=== PATIENT | male | born 1945 | race African-American/Black ===

== ENCOUNTER 2018-12-20 04:34 | Inpatient (IN) ==
[2018-12-20] MEDS ORDERED: NITROGLYCERIN TOP ONE (04:50)
--- NOTE | 2018-12-20 04:55 | PROVIDER DOCUMENTATION ---
HPI-General Adult - General Stated Complaint: cp Time Seen by Provider: 12/20/18 04:40 Source: patient, EMS Allergies/Adverse Reactions: Patient Allergies Allergy/AdvReac Type Severity Reaction Status Date / Time No Known Allergies Allergy Verified 12/20/18 05:04 - History of Present Illness -Gen Adult Nature of Presenting Problems: 73 y/o M presents to the ED complaining of chest pain. States he awoke with this pain at about 1am and it has persisted since. States with this he was dyspnic and diaphoretic but did not get nauseated. States chest pain was decreased from a 03/24 to 110 after EMS gave him ASA and NTG. Pain substernal and non-radiating pressure like pain. Has Hx of CHF, HTN, HPL, and prior SD Review of Systems - Adult - REVIEW OF SYSTEMS - ADULT Constitutional: reports: no symptoms reported Eyes: reports: no symptoms reported Ears, Nose, Mouth & Throat: reports: no symptoms reported Cardiovascular: reports: chest pain Respiratory: reports: shortness of breath. denies: cough Gastrointestinal: reports: no symptoms reported Genitourinary: reports: no symptoms reported Musculoskeletal: reports: no symptoms reported Integumentary: reports: no symptoms reported Neurological: reports: no symptoms reported Psychiatric: reports: no symptoms reported Endocrine: reports: no symptoms reported Hematologic/Lymphatic: reports: no symptoms reported Allergic/Immunologic: reports: no symptoms reported All Other Systems: Reviewed and Negative Past History - Adult - PAST MEDICAL HISTORY-ADULT Review of Records: reports: Old Records Reviewed, Nursing Assessment Review, Medications Reviewed, Social history reviewed & non-contributory. Physical Exam-General - PHYSICAL EXAM-ADULT Initial Vital Signs Reviewed: Yes - CONSTITUTIONAL General Appearance: appears well, alert, no apparent distress - EYES Eyes: PERRL/EOMI - HEAD, EARS, NOSE, MOUTH & THROAT HENMT: normocephalic/atraumatic, moist mucous membranes, normal ENT inspection - NECK Neck: non-tender, full range of motion, supple - RESPIRATORY Respiratory: chest non-tender, lungs clear, normal breath sounds - CARDIOVASCULAR Cardiovascular: normal peripheral pulses, regular rate, rhythm, no JVD, other (1+ BL pitting edema) - GASTROINTESTINAL (ABDOMEN) Abdominal Exam: non tender, soft - MUSCULOSKELETAL Back Exam: normal inspection, no CVA tenderness, no vertebral tenderness Extremity: normal range of motion, non-tender - SKIN Integumentary: normal color, normal turgor, warm/dry - NEUROLOGIC Neurologic: grossly normal, no motor/sensory deficits - PSYCHIATRIC Psych/Mental Status: normal mood/affect, normal thought content, normal thought process, oriented x 3 Progress - PLAN OF CARE/RESULTS Progress/Plan/Lab Results: Orders Category Date Time Status IV Insertion ORDERED Care 12/20/18 04:50 Ordered CHEST-1 VIEW [RAD] Stat Exams 12/20/18 04:50 Ordered BASIC METABOLIC PANEL [CHEM] Stat Lab 12/20/18 04:50 Uncollected CBC WITH DIFF [HEME] Stat Lab 12/20/18 04:50 Uncollected PRO B-NATRIURETIC PEPTIDE Stat Lab 12/20/18 04:50 Uncollected TROPONIN T Stat Lab 12/20/18 04:50 Uncollected Nitroglycerin Med 12/20/18 04:50 Once 1 inch TOP NOW ONE EKG [EKG] Stat Ther 12/20/18 04:26 Ordered chest pain will further evaluate for causes including but not limited to ACS, arrythmia, ptx, pna, chf, pe Result Diagrams: 12/20/18 05:20 12/20/18 05:20 - REASSESSMENT Reassessment #1 Status: improving (chest pain resolved. ED work up unremarkable but presentation concerning for ACS will admit for furhter evaluation and treatment. Discussed case with Dr. Bright, Hospitalist, who will see and admit pt.) - EKG 1 Time of EKG reading by physician:: 04:38 EKG Read and Signed by:: Stephany Lewis EKG Interpretation (*Must complete 3 of following elements*): Abnormal (Sinus Rhythm, rate 58, inverted t-waves inferiorly, normal axis and intervals. T-waves inversions new as compared to 04/23/18) - XRAY 1 XRAY Study: Chest Impression: Normal Departure - Departure Date of Disposition Decision: 12/20/18 Time of Disposition Decision: 06:29 DIAGNOSIS: Chest pain Qualifiers: Chest pain type: unspecified Qualified Code(s): R07.9 - Chest pain, unspecified Disposition: ADMITTED INPATIENT 09 Certified Medical Emergency: Emergent Condition: Good Referrals and Follow-Ups: Bharathi Medina MD [Primary Care Provider] - - Critical Care Note This patient required my direct & personal management of CC.: No Attestation - Physician/ PHOEBE Attestation Patient care was provided by Advanced Practice Provider:: No The physician spent face to face time with patient:: Yes Advanced Practice Provider documentation review:: Supervising physician onsite and consulted in the evaluation and care of this patient. The physician did have a face to face encounter with the patient.
[2018-12-20 05:31] LABS: BASO# 0.03 X1000 (0.0-0.2); BASO% 0.4 % (0.0-0.8); EOS# 0.31 X1000 (0.0-0.7); EOS% 4.4 % (0.0-10.0); HEMATOCRIT 38.8 % (42.0-52.0); HEMOGLOBIN 13.4 g/dL (14.0-18.0); LYMPH# 2.71 X1000 (1.2-3.4); LYMPH% 38.8 % (20.5-51.1); MCH 32.4 PG (27-31); MCHC 34.5 g/dL (33-37); MCV 93.7 FL (81-99); MONO# 0.65 X1000 (0.11-0.59); MONO% 9.3 % (1.7-9.3); MPV 11.1 FL (7.4-10.4); NEUT# 3.29 X1000 (1.4-6.5); NEUT% 47.1 % (42.2-75.2); PLT 171 X1000 (130-400); RBC 4.14 XMIL (4.7-6.1); RDW 12.1 % (11.5-14.5); WBC 6.99 X1000 (4.8-10.8)
[2018-12-20 06:08] LABS: AGAP 13; BUN 13 mg/dL (8-22); CHLORIDE 99 mmol/L (98-107); COSMO 282; CREATININE 1.3 mg/dL (0.7-1.2); ESTIMATED GFR > 60; GLUCOSE 171 mg/dL (70-104); POTASSIUM 3.5 mmol/L (3.5-5.1); SODIUM 139 mmol/L (136-145); TCO2 27 mmol/L (25-35)
[2018-12-20] MEDS ORDERED: KLOR-CON PO ONE (06:37)
[2018-12-20] MEDS ORDERED: TYLENOL PO PRN (06:38)
[2018-12-20] MEDS ORDERED: ZOFRAN IV PRN (06:38)
[2018-12-20] MEDS ORDERED: NITROGLYCERIN SL PRN (06:38)
[2018-12-20] MEDS ORDERED: LOVENOX SUBQ SCH (06:45)
[2018-12-20 07:14] LABS: HEMOGLOBIN A1C 5.4 % (4.8-6.0)
--- NOTE | 2018-12-20 07:54 | Diag Imaging Result Doc PS360 ---
EXAM: CHEST-1 VIEW INDICATION: chest pain TECHNIQUE: One view COMPARISON: 04/23/2018 FINDINGS: There is stable minimal elevation of the left hemidiaphragm. The lungs are grossly clear. There is no discrete pleural fluid collection or pneumothorax. The cardiomediastinal silhouette and central vasculature are grossly unremarkable. IMPRESSION: No evidence of acute pathology by plain radiograph. Electronically signed by Martínez Rg 12/20/2018 7:52 AM
[2018-12-20] MEDS: ASPIRIN PO SCH (09:09)
[2018-12-20] MEDS: PRILOSEC PO SCH (09:09)
[2018-12-20] MEDS ORDERED: COREG PO SCH ×2 (09:47→21:00)
[2018-12-20] MEDS ORDERED: NORVASC PO SCH (09:47)
--- NOTE | 2018-12-20 11:29 | HISTORY AND PHYSICAL ---
PRIMARY CARE PHYSICIAN: Dr. Medina. CHIEF COMPLAINT: Chest pain. HISTORY OF PRESENT ILLNESS: This is a 73-year-old male, lying on the ER stretcher in no acute distress. He complains that he woke up around 1:15 this morning with chest tightness that he described that went across his entire chest at the top part and radiated down his right arm. Stated this pain was a pressure-like pain. The patient states that he ate 4 tacos last p.m. about 8 p.m. and fell asleep in his recliner at about 10:30 last night after watching a ball game. The patient states that when he woke up with this chest tightness, he took a teaspoon of baking soda because he thought it was more of an epigastric pain, but this did not help. The patient denies any nausea or vomiting during this episode. States that he did have a little shortness of breath with this pain where it was hard for him to take a deep breath. He states the pain lasted about 3 hours and then subsided after he came into the ER. The patient states that he is still sore to his right shoulder area. The patient denies any chest pain at this present time, just soreness to the right shoulder area. The patient denies any nausea or vomiting at this present time. Heart rate on monitor is sinus bradycardia in the 50s. No irregularities noted. The patient does have some edema noted to the bilateral lower extremities, about a +1. The patient states he has been having this edema and that his heart doctor, Dr. Irizarry, is aware and put him on some hydrochlorothiazide for the edema. Patient states that he does not think the edema came from his heart. He states that it started after he started taking amlodipine. There were no other significant symptoms noted. PAST MEDICAL HISTORY: 1. Peripheral artery disease. 2. Hypertension. 3. Hyperlipidemia. 4. The patient is hard of hearing and wears hearing aids. PAST SURGICAL HISTORY: Includes angioplasty 25 to 30 years ago in [place] and cataract surgery. FAMILY HISTORY: Mother had hypertension and from a stroke. Dad is and the patient was estranged from his father, does not know much about him. SOCIAL HISTORY: Patient moved from [place] to [place] several years back. He is retired and lives with his girlfriend and her son who is 20 years old. The patient smokes half a pack of cigarettes a day. He denies any alcohol or drug abuse. ALLERGIES: No known drug allergies. MEDICATIONS: 1. Hydrochlorothiazide 12.5 mg p.o. daily. 2. Amlodipine 5 mg p.o. daily. 3. Coreg 25 mg daily. 4. Pravastatin sodium 20 mg p.o. daily. LABORATORY AND DIAGNOSTIC DATA: White blood cell count 6.99, hemoglobin 13.4, hematocrit 38.8, platelet count 171,000. Sodium 139, potassium 3.5, CO2 27, BUN 13, creatinine 1.3, glucose 171. Hemoglobin A1c 5.4, calcium 9.0. Magnesium 1.6. Troponin 0.051. ProBNP 24. Cholesterol 144, LDL 73, VLDL cholesterol 27, HDL 55. Chest x-ray done on 12/20/2018 shows no evidence of acute pathology. EKG done in the ER showed sinus rhythm, rate of 58 with inverted T- waves and normal axis, T-waves inversions are new compared to 04/23/2018. REVIEW OF SYSTEMS: Fourteen point review of systems complete, all negative except for what is stated above in the HPI. PHYSICAL EXAMINATION: VITAL SIGNS: Temperature 97.7 degrees, pulse rate 59, respiratory rate 12, blood pressure 146/90, O2 saturation 97% on room air. GENERAL: This is a 73-year-old male, lying on the ER stretcher in no acute distress. The patient is well-nourished, able to answer all questions appropriately. HEENT: Head is atraumatic and normocephalic. Pupils are equal, round, reactive to light. Mucous membranes are dry. NECK: Supple. No lymphadenopathy. Trachea is midline. No JVD. CARDIOVASCULAR: S1, S2 noted. No murmur, gallop, or rub. Regular rate and rhythm. RESPIRATORY: Lung sounds are clear. Equal chest expansion. Respirations are nonlabored and there is no accessory muscle usage. GASTROINTESTINAL: Abdomen is soft, nontender, nondistended. Bowel sounds are present x4. GENITOURINARY: The patient is voiding clear yellow urine. Denies any dysuria. NEUROLOGIC: The patient is awake, alert, oriented, able to follow all commands and questions appropriately. Cranial nerves intact. MUSCULOSKELETAL: Full distal strength noted. No abnormalities. EXTREMITIES: Bilateral lower leg edema +1. No clubbing or cyanosis is noted. DP and PT pulses are +2 and palpable. SKIN: Warm, dry, and intact. No rashes, bruises noted. ASSESSMENT: 1. Acute coronary syndrome. 2. Hypertension. 3. Hyperlipidemia. 4. Peripheral artery disease. PLAN: We will admit the patient to the medical floor. Restart all home medications. Repeat troponin level and EKG. Provide pain medicine and nausea medication as needed. Start the patient on some IV fluid for 24 hours as patient may be a little dehydrated. Dictated by GLORIA Moreno for Franck Moreno MD cc: MD Bharathi Crespo MD Agree with above. the following is my own face to face assessment. Patient with complaints of chest pain. initial troponin negative. on exam heart RRR, lungs CTAB. will trend troponins and monitor. MTDD
[2018-12-20 13:32] LABS: CK INDEX 7.7 (0.0-2.5); CK-MB 24.8 ng/mL (0.0-5.0)
[2018-12-20] MEDS: NS 1,000 ML IV SCH ×2 (15:42→15:43)
--- NOTE | 2018-12-20 18:21 | CARDIOLOGY CONSULTATION ---
DATE: 12/20/2018 CONSULTATION REQUESTED BY: Hospitalist Service. PRIMARY PHYSICIAN: Dr. Medina. REASON FOR CONSULTATION: Chest pain. HISTORY: Mr. Lynn is a 73-year-old black gentleman who presented to the emergency room early this morning. Apparently, he had eaten some greasy stuff before watching a basketball game that ended up after midnight. At about 1:15 in the morning, he was awakened by pain across the chest. It lasted for 2 to 3 hours and eventually got better. He has received thus far only 1 set of troponins at 5:20 in the morning. It is 0.051 ng/mL. The patient has no previous troponins in the system. His LDL cholesterol is 73, total cholesterol 144, triglycerides 135, HDL is 55. ProBNP is normal at 20 pg/mL. His creatinine is 1.3 mg%. The patient felt a little short of breath during the episode of chest pain. That has subsided. He is feeling back to his normal self. He has noted some swelling lately. PAST HISTORY: Positive for previous diagnosis of hypertension and hyperlipidemia. He also has history of acid reflux. In 2016, he underwent testing for chest pain. In December 2016, his stress test showed a moderate size fixed defect in the left ventricular apex associated with chest wall attenuation. He has no significant surgical history in the past. SOCIAL HISTORY: He lives with a girlfriend. His 1st . He has a total of 6 children, 5 boys and 1 girl. They are scattered all over the country, 1 in [place], 1 in [place], 1 in [place], 1 in [place], [place]. 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 He has been in [place] for the past 5 years or so. FAMILY HISTORY: Noncontributory. MEDICATIONS: Home medications at this time include amlodipine 5 mg daily, carvedilol 25 daily, hydrochlorothiazide 12.5 daily, pravastatin 20 mg daily. REVIEW OF SYSTEMS: Lately, he has noted puffiness of the legs. That coincides with the switching of his medications from Diovan to amlodipine. No other positives in his multiple systems. PHYSICAL EXAMINATION: Vital Signs: Today blood pressure is 157/82, pulse 51, respirations 13, temperature is 97.7 degrees. General: He is awake, alert, in no distress. HEENT: Unremarkable. Chest: Sounds clear to auscultation and percussion. Heart: Sounds are regular, rhythmic. No gallop or murmur. Abdomen: Nontender. No masses. No hepatomegaly. Extremities: Trace edema in both ankles. Neurologic: Nonfocal. Moves 4 extremities. DIAGNOSTIC STUDIES: Twelve-lead EKG shows sinus bradycardia, rate 58 beats per minute at 4:37 in the morning. There is a nonspecific T-wave in the inferior lateral leads. Repeat EKG at 11:53 in the morning shows similar abnormalities. IMPRESSION: 1. The patient presented with chest pain that may or may not represent coronary heart disease. 2. History of hypertension. 3. Tobacco user. 4. Peripheral edema, probably secondary to amlodipine. 5. His proBNP is normal. 6. Abnormal EKG. RECOMMENDATIONS: We will do serial cardiac enzymes on him, and we will arrange for a stress test and an echocardiogram. Further advice will be forthcoming. Thank you for the opportunity to participate in his evaluation. If the cardiac workup is negative, please proceed with an abdominal ultrasound to make sure that he does not have gallstones. cc: Michel Bailey MD
[2018-12-20] MEDS: LOVENOX SUBQ SCH (18:47)
[2018-12-20] MEDS: COREG PO SCH (21:42)
[2018-12-20] MEDS: PRAVACHOL PO SCH (21:42)
[2018-12-21] MEDS: NS 1,000 ML IV SCH ×3 (05:58→21:46)
[2018-12-21] MEDS: PRILOSEC PO SCH (06:06)
[2018-12-21] MEDS: LOVENOX SUBQ SCH ×2 (06:06→19:44)
[2018-12-21 08:01] LABS: AGAP 10; BUN 9 mg/dL (8-22); CALCIUM 8.9 mg/dL (8.8-10.2); CHLORIDE 101 mmol/L (98-107); COSMO 276; CREATININE 1.2 mg/dL (0.7-1.2); ESTIMATED GFR > 60; GLUCOSE 131 mg/dL (70-104); POTASSIUM 3.7 mmol/L (3.5-5.1); SODIUM 138 mmol/L (136-145); TCO2 27 mmol/L (25-35)
[2018-12-21] MEDS: ASPIRIN PO SCH (09:06)
[2018-12-21] MEDS: COREG PO SCH ×2 (09:06→21:46)
--- NOTE | 2018-12-21 10:57 | Extremity Venous Study ---
PROCEDURE NAME: Venous U/S Bilateral Legs - 12/20/2018 PROCEDURE PERFORMED: Bilateral lower extremity venous duplex and color flow imaging study using the [employer] Vivid E9 ultrasound system with a 9 L-D transducer. REFERRING PHYSICIAN: Dr. Moreno. LOCATION: Room #325. A 73-year-old male. [place] INTERNSHIP: [employer] Gates RVT. INDICATIONS: Bilateral lower extremity pain and edema suggestive of deep venous thrombosis. FINDINGS: The right common femoral vein and its branches, deep and superficial femoral veins were satisfactorily imaged. They had flow through them and were compressible. Right popliteal vein and the deep veins below the right knee were all compressible and had flow through them. The superficial veins of the right lower extremity were compressible throughout their length. The left common femoral vein and its branches, deep and superficial femoral veins were also satisfactorily imaged. They had flow through them and were compressible. Left popliteal vein and the deep veins below the left knee were all compressible and had flow through them. The superficial veins of the left lower extremity were compressible throughout their length. OVERALL INTERPRETATION: There was evidence of venous insufficiency involving the right popliteal vein and the left common femoral vein and the left great saphenous vein. cc: Saumya Burr MD
--- NOTE | 2018-12-21 11:27 | CARDIOLOGY PROGRESS NOTE ---
DATE: 12/21/2018 CHIEF COMPLAINT: Chest pain. SUBJECTIVE: Mr. Lynn is feeling better. He has not had any further chest pains. His telemetry shows no arrhythmia. He is up and about, ambulating. He is about to take a shower. OBJECTIVE: Blood pressure is 137/94, temperature 97.9, pulse 60, respirations 20. He is awake, alert and oriented. No distress. HEENT: Unremarkable. Chest: Clear to auscultation and percussion. Heart sounds regular and rhythmic. No gallop or murmur. Abdomen: Nontender. Soft. No masses. No hepatomegaly. Extremities: Good pulses. No peripheral edema. Neurologic: Follows commands. Moves all 4 extremities. DIAGNOSTIC DATA: A 12-lead EKG today shows sinus rhythm with a nonspecific T wave change in inferolateral leads. This appears to be a little more pronounced than yesterday. Troponin levels actually rule in, within range for myocardial infarction. The highest was 0.742, and then it has come down to 0.299. IMPRESSION: 1. The patient has suffered a [id number]-[id number] myocardial infarction. 2. Tobacco user. 3. History of hypertension. 4. Lower extremity edema, unrelated to heart failure. This appears to be a side effect of amlodipine. 5. Hyperlipidemia. RECOMMENDATIONS: At this time, we will suggest to continue Lovenox at 1 mg/kg plus aspirin plus beta brooke plus low dose amlodipine. The patient will be referred to [facility] tomorrow morning for coronary arteriography, possibly coronary intervention. I explained to the patient the benefits, risks and complications of that procedure. He is in agreement. We will contact [place] in the morning. cc: Michel Bailey MD
[2018-12-21 12:04] LABS: CK INDEX 3.6 (0.0-2.5); CK-MB 8.8 ng/mL (0.0-5.0)
--- NOTE | 2018-12-21 13:36 | PROGRESS NOTE ---
DATE: 12/21/2018 INTERVAL HISTORY: Patient with no further chest pain. No events on telemetry. Did have elevated troponin yesterday afternoon, but subsequent troponins have trended back down. No new complaints and no acute events overnight. REVIEW OF SYSTEMS: A 12 point review of systems negative except as per Interval History. LABORATORIES: Basic metabolic panel unremarkable aside from creatinine 1.2, glucose 131. Initial troponin 0.51, repeat 0.7, subsequent 0.29. VITALS: Temperature maximum 98.9 degrees, pulse 60, respirations 20, blood pressure 137/94, O2 saturation 100% on room air. PHYSICAL EXAMINATION: General: No acute distress. Vitals: As above. HEENT: Normocephalic, atraumatic. Moist mucous membranes. Neck: No cervical adenopathy. Cardiovascular: Regular rate and rhythm. No murmurs noted. Pulmonary: Clear to auscultation bilaterally. No wheezing, rales, or rhonchi. Abdomen: Soft, nontender, nondistended. Bowel sounds positive. Extremities: Peripheral pulses intact. Trace to 1+ bilateral lower extremity edema. No clubbing or cyanosis. Neurologic: Cranial nerves grossly intact. Mild global weakness, but no focal deficits identified. Psychiatric: Normal mood and affect. Awake, alert, and oriented x3. Skin: No new rashes or lesions identified. Stable old bruises. ASSESSMENT AND PLAN: 1. Icm-UH-[id number] myocardial infarction. The patient presented with chest pain. Initial troponin negative, but trended up to 0.7. Subsequent troponin is trending back down. No further chest pain at this time. Cardiology following and planning on transferring patient to [place] for further evaluation with likely heart catheterization. We will continue aspirin, statin, and nitroglycerin as needed. 2. Hypertension. Reasonable control on current regimen. Beta brooke held this morning because of bradycardia, although patient was asymptomatic. Will discontinue clonidine and attempt to continue his beta brooke if he tolerates it. 3. Hyperlipidemia. Continue statin. 4. Lower extremity edema, fairly mild. Slight asymmetry, so ultrasound was performed, which was negative for DVT. Echocardiogram pending. 5. Elevated creatinine. Patient with baseline creatinine 1.1, slightly elevated at 1.3 on admission, but may be worsening of chronic kidney disease. Minimally improved to 1.2 now. Continue gentle hydration and monitor.
[2018-12-21] MEDS: PRAVACHOL PO SCH (21:46)
[2018-12-22] MEDS: PRILOSEC PO SCH (06:14)
[2018-12-22] MEDS: LOVENOX SUBQ SCH (06:17)
[2018-12-22 08:18] VITALS: BP 181/89
--- NOTE | 2018-12-22 09:27 | EKG Report ---
Test Performed on : 12/20/2018 11:53:12 AM Test Reason : chest pain Blood Pressure : / mmHG Vent. Rate : 050 BPM Atrial Rate : 050 BPM P-R Int : 122 ms QRS Dur : 088 ms QT Int : 434 ms P-R-T Axes : 027 013 -36 degrees QTc Int : 395 ms Sinus bradycardia. T wave abnormality, consider inferior ischemia Abnormal ECG When compared with ECG of 20-DEC-2018 04:37, (Unconfirmed) No significant change was found Confirmed by Jeremy JORDAN, Stephen Lee ([id number]) on 12/23/2018 9:59:55 AM
--- NOTE | 2018-12-22 09:38 | EKG Report ---
Test Performed on : 12/21/2018 08:01:00 AM Test Reason : chest pain Blood Pressure : / mmHG Vent. Rate : 052 BPM Atrial Rate : 052 BPM P-R Int : 166 ms QRS Dur : 092 ms QT Int : 450 ms P-R-T Axes : 030 -08 -43 degrees QTc Int : 418 ms Sinus bradycardia. T wave abnormality, consider inferior ischemia Abnormal ECG When compared with ECG of 20-DEC-2018 11:53, (Unconfirmed) No significant change was found Confirmed by Jeremy JORDAN, Stephen Lee ([id number]) on 12/23/2018 10:00:15 AM
--- NOTE | 2018-12-22 10:14 | EKG Report ---
Test Performed on : 12/20/2018 04:37:53 AM Test Reason : ED. NO EKG ORDER FOR MUSE Blood Pressure : / mmHG Vent. Rate : 058 BPM Atrial Rate : 058 BPM P-R Int : 176 ms QRS Dur : 092 ms QT Int : 430 ms P-R-T Axes : 047 -05 -25 degrees QTc Int : 422 ms Sinus bradycardia. Nonspecific T wave abnormality Abnormal ECG When compared with ECG of 23-APR-2018 14:10, Nonspecific T wave abnormality now evident in Lateral leads Unconfirmed Result
--- NOTE | 2018-12-22 10:20 | ECHO REPORT ---
ORDER DATE: 12/21/2018 INTERPRETING PHYSICIAN: Dr. Bailey REQUESTING PHYSICIAN: CLINICAL INDICATIONS: This is a 73-year-old male with iyx-YE-agbydhcis myocardial infarction, chest pain. M-MODE MEASUREMENTS: Right ventricle: cm. Left ventricle end diastole: 5.5 cm. Left ventricle end systole: 3.9 cm. Posterior wall: 1.1 cm. Interventricular septum: 1.1 cm. Left atrium: 4.0 cm. Aortic root: 3.4 cm. SUMMARY OF 2-DIMENSIONAL IMAGIN. Left ventricular function is preserved. Ejection fraction is estimated at 60% to 65%. There is question of hypokinesis of the most basal portion of the posterior wall. This is very limited. 2. The left atrium appears to be significantly enlarged. 3. Right atrium is mildly enlarged. 4. Right ventricle appears to be normal. 5. Inferior vena cava is not dilated. 6. Tricuspid valve looks normal. Color flow mapping indicates mild degree of regurgitation. 7. Pulmonary pressure is estimated at 32 mmHg. 8. Pulmonic valve looks normal. Color flow mapping indicates mild degree of regurgitation. 9. Aortic valve shows sclerosis, especially of the noncoronary cusp. Color flow mapping is unremarkable. 10.Mitral valve shows no significant regurgitation. 11.Pulse wave Doppler of mitral inflow shows "normal" E/A ratio. 12.Tissue Doppler of septal and lateral mitral annulus averages 9 cm. 13.There is no diastolic dysfunction. 14.No pericardial effusion, mass or thrombus. CONCLUSIONS: In summary, this study shows: 1. Normal left ventricular systolic function. 2. Question of hypokinesis of the most basal posterior wall. 3. No diastolic dysfunction. 4. Pulmonary pressure is 32 mmHg. 5. Sclerosis of the aortic valve without stenosis. Clinical correlation is recommended. cc: Michel Bailey MD
--- NOTE | 2018-12-27 05:27 | DISCHARGE SUMMARY ---
ADMISSION DATE: 12/20/2018 DISCHARGE DATE: 12/22/2018 DISCHARGE DIAGNOSES: 1. Chest pain. 2. Non-ST segment elevation myocardial infarction. 3. Hypertension. 4. Hyperlipidemia. 5. Coronary artery disease. 6. Chronic kidney disease stage 2. HOSPITAL COURSE: Patient with history of coronary artery disease, hypertension, and hyperlipidemia, who presented with sudden onset of chest pain across the entire chest region to the right arm, pressure-like, it woke him from sleep at 1:15 in the morning. He also reported new mildly worsening lower extremity edema. Initial evaluation was unremarkable with essentially normal labs, but subsequent troponin trended up to 0.72 before trending back down. He was evaluated by Cardiology, who recommended transfer to [place] for possible heart catheterization and/or evaluation by Cardiothoracic Surgery. His chest pain did resolve with nitroglycerin and morphine. He is otherwise stable. His creatinine was mildly elevated on admission at 1.3, it came down to 1.2 with fluids. Last known creatinine at our facility was 1.1, but that was a year or so prior, so may have had mild worsening of his underlying mild kidney disease. DISCHARGE VITAL SIGNS: Temperature 98.2 degrees, pulse 51, respirations 16, blood pressure 181/89, O2 saturation 99% on room air. DISCHARGE MEDICATIONS: 1. Coreg 25 mg p.o. b.i.d. 2. Hydrochlorothiazide 12.5 mg p.o. daily, currently being held. 3. Norvasc 5 mg p.o. daily. 4. Pravachol 20 mg p.o. daily. 5. Nitroglycerin and morphine as needed for chest pain. DISCHARGE DIET: NPO until seen by Cardiology. FOLLOWUP AND PLAN: Patient transferring to [facility] for further cardiac evaluation of his NSTEMI. TIME SPENT: Greater than 30 minutes spent arranging discharge and counseling patient.
== END 2018-12-22 11:43 | disposition short-term general hospital (02) | DRG 281 ==
LOC: SUPCPDRO → ED 04:34 → 3N 08:26 → SUATTDRO 08:26
PROVIDERS: ATTEND Internal Medicine
CPT/HCPCS: 71010; 71045; 80048; 80061; 82550; 82553; 83036; 83721; 83735; 83880; 84484; 85025; 93005; 93010; 93306; 93970; 96372; 99285; A9270; J1650; J7030